=== PATIENT | male | born 1990 | race Caucasian/White ===

== ENCOUNTER 2018-08-23 08:08 | Emergency (ER) | payer OTHER ==
[~2018-08-23] VITALS: Ht 170.2 cm; Wt 72.6 kg
[2018-08-23] MEDS ORDERED: PRILOSEC OTC20 MG ORAL (08:14)
[2018-08-23 08:23] VITALS: BP 148/109
[2018-08-23] MEDS ORDERED: DiphenhydrAMINE 50mg/ml Inj IVP ONE (08:30)
[2018-08-23] MEDS ORDERED: Hydromorphone 0.5mg/0.5ml inj IVP ONE ×2 (08:30→09:30)
[2018-08-23] MEDS ORDERED: Metoclopramide 10mg/2ml Inj IVP ONE (08:30)
--- NOTE | 2018-08-23 08:33 | Emergency Room Report ---
History of Present Illness General Chief Complaint: Vomiting Source: Patient Present Illness HPI Patient presents with epigastric pain vomiting and diarrhea. He has a history of hiatal hernia. He had endoscopy in June. They did a biopsy but he was not treated for H. pylori. The patient denies vomiting blood or coffee grounds. He does have diarrhea that's loose. He denies any melena. The pain is severe in his epigastric area and also down low in his abdomen -rated 10/10, burning and cramping. He denies dysuria. He states that when he goes the hospital usually gets Dilaudid and Zofran. He takes omeprazole at home. He last smoked marijuana on his birthday which was 4 days ago. He denies alcohol or other drugs. No chest pain, shortness of breath, rashes. When the patient feels this pain she gets anxious. Allergies: Coded Allergies: ASPIRIN (Verified Allergy, Unknown, 08/23/18) MORPHINE (Verified Allergy, Unknown, 08/23/18) Patient History Past Medical History: see triage record Social History: Reports: alcohol use - Last year, drug use - THC; Denies: smoking Social History Narrative brought by cousin Reviewed Nursing Documentation: PMH: Agreed; PSxH: Agreed Nursing Documentation-PMH Past Medical History: No Stated History Review of Systems All Other Systems: negative except mentioned in HPI Physical Exam Vital Signs Date Time Temp Pulse Resp B/P (MAP) Pulse Ox O2 Delivery O2 Flow Rate FiO2 08/23/18 08:12 98.4 64 18 157/103 99 Room Air Sp02 EP Interpretation: reviewed, normal General Appearance: GCS 15, non-toxic, mild distress Head: normocephalic, atraumatic Eyes: bilateral eye normal inspection, bilateral eye PERRL, bilateral eye EOMI ENT: moist mucus membranes Neck: supple Respiratory: lungs clear, normal breath sounds Cardiovascular #1: regular rate, rhythm, no edema Cardiovascular #2: 2+ radial (L) Gastrointestinal: soft, no mass, no guarding, no rebound, tenderness - Epigastric Musculoskeletal: back normal, gait/station normal, normal range of motion Neurologic: oriented x3, grossly normal Psychiatric: anxious Skin: other - Tattoos Medical Decision Making Diagnostic Impression: Primary Impression: Nausea & vomiting Qualified Codes: R11.2 - Nausea with vomiting, unspecified Additional Impressions: Abdominal pain Qualified Codes: R10.13 - Epigastric pain THC use ER Course Patient presents with nausea vomiting diarrhea and epigastric pain. Differential includes gastritis, gastroenteritis, pancreatitis with vomiting amongst others. Patient be evaluated with x-rays and labs. He will receive IV hydration, Reglan, Benadryl and Dilaudid. We will also give him a dose of Pepcid. The patient is placed on a athletic monitor. Chest x-ray and abdomen films unremarkable. Labs with normal white count. Tox screen positive for THC. Mild renal insufficiency. Patient required several doses of analgesia. Finally he was able to sleep. He was tolerating oral intake. Vomiting had stopped. Discussed results with patient. Patient stable for outpatient observation and treatment. Laboratory Tests Test 08/23/18 08:36 08/23/18 09:50 White Blood Count 7.7 K/UL (4.8-10.8) Red Blood Count 5.72 M/UL (4.70-6.10) Hemoglobin 17.0 G/DL (14.2-18.0) Hematocrit 49.3 % (42.0-52.0) Mean Corpuscular Volume 86 FL (80-99) Mean Corpuscular Hemoglobin 29.7 PG (27.0-31.0) Mean Corpuscular Hemoglobin Concent 34.5 G/DL (32.0-36.0) Red Cell Distribution Width 11.7 % (11.6-14.8) Platelet Count 328 K/UL (150-450) Mean Platelet Volume 7.0 FL (6.5-10.1) Neutrophils (%) (Auto) 70.0 % (45.0-75.0) Lymphocytes (%) (Auto) 20.7 % (20.0-45.0) Monocytes (%) (Auto) 5.5 % (1.0-10.0) Eosinophils (%) (Auto) 2.6 % (0.0-3.0) Basophils (%) (Auto) 1.2 % (0.0-2.0) Prothrombin Time 10.2 SEC (9.30-11.50) Prothrombin Time INR 1.0 (0.9-1.1) PTT 25 SEC (23-33) Sodium Level 139 MMOL/L (136-145) Potassium Level 4.4 MMOL/L (3.5-5.1) Chloride Level 99 MMOL/L (98-107) Carbon Dioxide Level 28 MMOL/L (21-32) Anion Gap 12 mmol/L (5-15) Blood Urea Nitrogen 20 mg/dL (7-18) H Creatinine 1.4 MG/DL (0.55-1.30) H Estimate Glomerular Filtration Rate 59.9 mL/min (>60) Glucose Level 88 MG/DL (74-106) Calcium Level 10.0 MG/DL (8.5-10.1) Total Bilirubin 0.5 MG/DL (0.2-1.0) Aspartate Amino Transferase (AST) 27 U/L (15-37) Alanine Aminotransferase (ALT) 22 U/L (12-78) Alkaline Phosphatase 116 U/L (46-116) Total Creatine Kinase 208 U/L (26-308) Total Protein 9.5 G/DL (6.4-8.2) H Albumin 4.8 G/DL (3.4-5.0) Globulin 4.7 g/dL Albumin/Globulin Ratio 1.0 (1.0-2.7) Lipase 244 U/L (73-393) Serum Alcohol < 3 mg/dL Urine Color Pale yellow Urine Appearance Clear Urine pH 8 (4.5-8.0) Urine Specific Sheldon 1.010 (1.005-1.035) Urine Protein Negative (NEGATIVE) Urine Glucose (UA) Negative (NEGATIVE) Urine Ketones Negative (NEGATIVE) Urine Blood Negative (NEGATIVE) Urine Nitrite Negative (NEGATIVE) Urine Bilirubin Negative (NEGATIVE) Urine Urobilinogen Normal MG/DL (0.0-1.0) Urine Leukocyte Esterase Negative (NEGATIVE) Urine Opiates Screen Negative (NEGATIVE) Urine Barbiturates Screen Negative (NEGATIVE) Phencyclidine (PCP) Screen Negative (NEGATIVE) Urine Amphetamines Screen Negative (NEGATIVE) Urine Benzodiazepines Screen Negative (NEGATIVE) Urine Cocaine Screen Negative (NEGATIVE) Urine Marijuana (THC) Screen Positive (NEGATIVE) H Rhythm Strip Diag. Results EP Interpretation: yes Rhythm: NSR, no PVC's, no ectopy Chest X-Ray Diagnostic Results Chest X-Ray Diagnostic Results : Chest X-Ray Ordered: Yes # of Views/Limited/Complete: 1 View Indication: Other EP Interpretation: Yes Interpretation: no consolidation, no effusion, no pneumothorax Impression: No acute disease Electronically Signed by: Electronically signed by Westley Martin MD Other X-Ray Diagnostic Results Other X-Ray Diagnostic Results : # of Views/Limited Vs Complete: 1 View Indication: Pain Interpretation: nonspecific bowel gas, no sbo, other - No masses or free air Impression: No acute disease Electronically Signed by: Electronically signed by Westley Martin MD Last Vital Signs Date Time Temp Pulse Resp B/P (MAP) Pulse Ox O2 Delivery O2 Flow Rate FiO2 08/23/18 12:39 98.6 72 12 128/72 99 Room Air Status: improved Disposition: HOME, SELF-CARE Condition: Improved Scripts Acetaminophen (Tylenol) 325 Mg Tablet 650 MG ORAL Q6H PRN for Prn Pain/Headache/Temp > 101, #20 TAB 0 Refills Prov: Westley Martin MD 08/23/18 Ondansetron Odt* (ZOFRAN ODT*) 4 Mg Tab.rapdis 4 MG BC EVERY 8 HOURS, #10 TAB 0 Refills Prov: Westley Martin MD 08/23/18 Famotidine (PEPCID AC) 20 Mg Tablet 20 MG PO DAILY, #30 TAB Prov: Westley Martin MD 08/23/18 Westley Martin MD Aug 23, 2018 08:33
[2018-08-23 08:48] LABS: BASOPHILS % (AUTO) 1.2 % (0.0-2.0); EOSINOPHILS % (AUTO) 2.6 % (0.0-3.0); HEMATOCRIT 49.3 % (42.0-52.0); LYMPHOCYTES % (AUTO) 20.7 % (20.0-45.0); MEAN CORPUSCULAR VOLUME 86 FL (80-99); MONOCYTES % (AUTO) 5.5 % (1.0-10.0); PLATELET COUNT 328 K/UL (150-450); RED BLOOD COUNT 5.72 M/UL (4.70-6.10); RED CELL DISTRIBUTION WIDTH 11.7 % (11.6-14.8); WHITE BLOOD COUNT 7.7 K/UL (4.8-10.8)
[2018-08-23 09:02] LABS: ANION GAP 12 mmol/L (5-15); BLOOD UREA NITROGEN 20 mg/dL (7-18); CARBON DIOXIDE 28 MMOL/L (21-32); CHLORIDE 99 MMOL/L (98-107); CREATININE 1.4 MG/DL (0.55-1.30); POTASSIUM 4.4 MMOL/L (3.5-5.1); SODIUM 139 MMOL/L (136-145)
[2018-08-23 09:04] LABS: ALANINE AMINOTRANSFERASE 22 U/L (12-78); ALBUMIN 4.8 G/DL (3.4-5.0); ALKALINE PHOSPHATASE 116 U/L (46-116); ASPARTATE AMINO TRANSFERASE 27 U/L (15-37); BILIRUBIN,TOTAL 0.5 MG/DL (0.2-1.0); CREATINE KINASE 208 U/L (26-308)
[2018-08-23] MEDS ORDERED: fentaNYL 100 mcg/2 mL IV ONE (10:00)
[2018-08-23 10:22] LABS: APPEARANCE,URINE CLEAR; BILIRUBIN, URINE NEGATIVE (NEGATIVE); COLOR,URINE PALE YELLOW; GLUCOSE, URINE (UA) NEGATIVE (NEGATIVE); KETONES,URINE NEGATIVE (NEGATIVE); LEUKOCYTE ESTERASE ,URINE NEGATIVE (NEGATIVE); NITRITE,URINE NEGATIVE (NEGATIVE); PH,URINE 8 (4.5-8.0); PROTEIN,URINE NEGATIVE (NEGATIVE); UROBILINOGEN,URINE NORMAL MG/DL (0.0-1.0)
[2018-08-23 10:23] VITALS: BP 126/86
--- NOTE | 2018-08-23 11:03 | Diagnostic Imaging Report ---
Indication: Chest pain Technique: One view of the chest Comparison: none Findings: No acute infiltrates, effusions, or congestion. Tortuous calcified aorta. Normal heart size. Upper mediastinum unremarkable. Impression: No acute process.
--- NOTE | 2018-08-23 11:05 | Diagnostic Imaging Report ---
Indication: Abdominal pain Technique: Supine view of the abdomen Comparison: none Findings: Single prominent small bowel loop is seen in the left upper quadrant. The remainder the bowel gas is unremarkable. No masses or unusual calcifications. Impression: Single prominent left upper quadrant small bowel loop, nonspecific. No acute process otherwise
[2018-08-23 11:43] VITALS: BP 124/82
[2018-08-23] MEDS ORDERED: TYLENOL325 MG ORAL (12:12)
[2018-08-23] MEDS ORDERED: ONDANSETRON ODT4 MG BC (12:12)
[2018-08-23] MEDS ORDERED: PEPCID AC20 M2 PO (12:12)
[2018-08-23 12:39] VITALS: BP 128/72
== END 2018-08-23 12:40 | disposition home or self-care (01) ==
LOC: EMR 08:42
DX: R11.2 Nausea with vomiting, unspecified (principal); R10.13 Epigastric pain; F12.90 Cannabis use, unspecified, uncomplicated; Z88.6 Allergy status to analgesic agent
CPT/HCPCS: 36415; 71045; 74018; 80053; 80307; 80329; 81003; 82550; 83690; 85025; 85610; 85730; 96361; 96374; 96375; 96376; 99284; J1170; J1200; J2405; J2765; J3010; S0028; 96360

== ENCOUNTER 2018-08-30 07:22 | Emergency (ER) | payer OTHER ==
[~2018-08-30] VITALS: Ht 172.7 cm; Wt 77.1 kg
[~2018-08-30 07:22] MED LIST: ONDANSETRON ODT4 MG BC; PEPCID AC20 M2 PO; PRILOSEC OTC20 MG ORAL; TYLENOL325 MG ORAL
--- NOTE | 2018-08-30 07:35 | NUR ---
ED Nurse Note: Patient brought in by wheelchair from the triage, patient is from home c/o abdominal pain 10/10 with nausea and vomiting patient reports diarrhea started couple of hours. patient reports hx. pancreatitis
[2018-08-30] MEDS ORDERED: HYDROmorphone 1mg/ml Carpuject IVP ONE (07:45)
[2018-08-30] MEDS ORDERED: DiphenhydrAMINE 50mg/ml Inj IVP ONE (07:45)
[2018-08-30 07:56] VITALS: BP 118/83
[2018-08-30 07:58] LABS: BASOPHILS % (AUTO) 1.2 % (0.0-2.0); EOSINOPHILS % (AUTO) 1.8 % (0.0-3.0); HEMATOCRIT 44.6 % (42.0-52.0); HEMOGLOBIN 15.3 G/DL (14.2-18.0); LYMPHOCYTES % (AUTO) 23.1 % (20.0-45.0); MEAN CORPUSCULAR VOLUME 87 FL (80-99); MONOCYTES % (AUTO) 3.5 % (1.0-10.0); NEUTROPHILS % (AUTO) 70.4 % (45.0-75.0); PLATELET COUNT 338 K/UL (150-450); RED CELL DISTRIBUTION WIDTH 11.8 % (11.6-14.8); WHITE BLOOD COUNT 10.7 K/UL (4.8-10.8)
--- NOTE | 2018-08-30 08:21 | Emergency Room Report ---
History of Present Illness General Chief Complaint: Abdominal Pain Source: Patient Present Illness HPI 28-year-old male presents ED for evaluation. Patient complaining of abdominal pain with vomiting and diarrhea. Started this morning. Pain is sharp, 10 out of 10, nonradiating. States he has history of pancreatitis. Denies alcohol use , admits to marijuana use. Denies chest pain or shortness of breath. Denies fevers or chills. Denies recent travel or recent antibiotic use. No other aggravating relieving factors. Denies any other associated symptoms Allergies: Coded Allergies: ASPIRIN (Verified Allergy, Unknown, 08/23/18) MORPHINE (Verified Allergy, Unknown, 08/23/18) Patient History Past Medical History: other - pancreatitis Past Surgical History: none Pertinent Family History: none Social History: Denies: smoking, alcohol use, drug use Immunizations: UTD Reviewed Nursing Documentation: PMH: Agreed; PSxH: Agreed Nursing Documentation-PM Past Medical History: No History, Except For Hx Gastrointestinal Problems: Yes - Pancreatitis Review of Systems All Other Systems: negative except mentioned in HPI Physical Exam Vital Signs Date Time Temp Pulse Resp B/P (MAP) Pulse Ox O2 Delivery O2 Flow Rate FiO2 08/30/18 07:27 98.8 92 20 117/83 97 Room Air Sp02 EP Interpretation: reviewed, normal General Appearance: alert, GCS 15, non-toxic, mild distress Head: normocephalic, atraumatic Eyes: bilateral eye normal inspection, bilateral eye PERRL ENT: hearing grossly normal, normal pharynx, no angioedema, normal voice Neck: full range of motion, supple/symm/no masses Respiratory: chest non-tender, lungs clear, normal breath sounds, speaking full sentences Cardiovascular #1: regular rate, rhythm, no edema Cardiovascular #2: 2+ carotid (R), 2+ carotid (L), 2+ radial (R), 2+ radial (L) , 2+ dorsalis pedis (R), 2+ dorsalis pedis (L) Gastrointestinal: normal bowel sounds, soft, non-distended, no guarding, no rebound, tenderness Rectal: deferred Genitourinary: normal inspection, no CVA tenderness Musculoskeletal: back normal, gait/station normal, normal range of motion, non- tender Neurologic: alert, oriented x3, responsive, motor strength/tone normal, sensory intact, speech normal Psychiatric: judgement/insight normal, memory normal, mood/affect normal, no suicidal/homicidal ideation Reflexes: 3+ bicep (R), 3+ bicep (L), 3+ tricep (R), 3+ tricep (L), 3+ knee (R) , 3+ knee (L) Skin: normal color, no rash, warm/dry, well hydrated Lymphatic: no adenopathy Medical Decision Making Diagnostic Impression: Primary Impression: Abdominal pain Qualified Codes: R10.84 - Generalized abdominal pain Additional Impression: Gastroenteritis ER Course Hospital Course 28-year-old M presents to ED with abdominal pain with vomiting, diarrhea differential diagnosis: gastritis, SBO, cholecystits, gastroenteritis Clinical course Patient placed on stretcher. 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 After initial history and physical I ordered labs, IV fluids, Zofran, pepcid and pain meds Labs - no leukocytosis, electrolytes ok, LFTs normal, lipase ok Upon reassessment, patient states pain has improved. consideration gastroenteritis I reviewed EMR. This is second visit recently. For similar presentation. Safe for discharge close outpatient follow-up. We'll provide PMD referrals I feel this is a highly complex case requiring extensive working including EKG/ Rhythm strip, Xray/CT/US, Blood/urine lab work, repeat exams while in ED, and administration of strong opiates/narcotics for pain control, admission to hospital or close patient follow up. Diagnosis - gastroenteritis Stable and discharged to home with prescriptions for Zantac, zofran. Followup with PMD. Return to ED if symptoms recur or worsen Labs Test 08/30/18 07:48 White Blood Count 10.7 K/UL (4.8-10.8) Red Blood Count 5.10 M/UL (4.70-6.10) Hemoglobin 15.3 G/DL (14.2-18.0) Hematocrit 44.6 % (42.0-52.0) Mean Corpuscular Volume 87 FL (80-99) Mean Corpuscular Hemoglobin 30.0 PG (27.0-31.0) Mean Corpuscular Hemoglobin Concent 34.3 G/DL (32.0-36.0) Red Cell Distribution Width 11.8 % (11.6-14.8) Platelet Count 338 K/UL (150-450) Mean Platelet Volume 6.4 FL (6.5-10.1) Neutrophils (%) (Auto) 70.4 % (45.0-75.0) Lymphocytes (%) (Auto) 23.1 % (20.0-45.0) Monocytes (%) (Auto) 3.5 % (1.0-10.0) Eosinophils (%) (Auto) 1.8 % (0.0-3.0) Basophils (%) (Auto) 1.2 % (0.0-2.0) Sodium Level 137 MMOL/L (136-145) Potassium Level 4.2 MMOL/L (3.5-5.1) Chloride Level 102 MMOL/L (98-107) Carbon Dioxide Level 25 MMOL/L (21-32) Anion Gap 10 mmol/L (5-15) Blood Urea Nitrogen 17 mg/dL (7-18) Creatinine 1.2 MG/DL (0.55-1.30) Estimat Glomerular Filtration Rate > 60 mL/min (>60) Glucose Level 99 MG/DL (74-106) Calcium Level 9.7 MG/DL (8.5-10.1) Total Bilirubin 0.6 MG/DL (0.2-1.0) Aspartate Amino Transf (AST/SGOT) 18 U/L (15-37) Alanine Aminotransferase (ALT/SGPT) 17 U/L (12-78) Alkaline Phosphatase 93 U/L (46-116) Total Protein 8.3 G/DL (6.4-8.2) Albumin 4.4 G/DL (3.4-5.0) Globulin 3.9 g/dL Albumin/Globulin Ratio 1.1 (1.0-2.7) Lipase 162 U/L (73-393) Last Vital Signs Date Time Temp Pulse Resp B/P (MAP) Pulse Ox O2 Delivery O2 Flow Rate FiO2 08/30/18 07:56 98.8 90 13 118/83 98 Room Air Status: improved Disposition: HOME, SELF-CARE Condition: Stable Scripts Ondansetron Odt* (ZOFRAN ODT*) 4 Mg Tab.rapdis 4 MG BC EVERY 6 HOURS PRN for Nausea & Vomiting, #10 TAB 0 Refills Prov: Palomo Aguilera MD 08/30/18 Ranitidine Hcl* (ZANTAC*) 150 Mg Tablet 150 MG ORAL TWICE A DAY, #30 TAB Prov: Palomo Aguilera MD 08/30/18 Referrals: NOT CHOSEN IPA/,REFERRING (PCP) Palomo Aguilera MD Aug 30, 2018 08:21
[2018-08-30 08:33] LABS: ANION GAP 10 mmol/L (5-15); BLOOD UREA NITROGEN 17 mg/dL (7-18); CALCIUM 9.7 MG/DL (8.5-10.1); CARBON DIOXIDE 25 MMOL/L (21-32); CHLORIDE 102 MMOL/L (98-107); CREATININE 1.2 MG/DL (0.55-1.30); POTASSIUM 4.2 MMOL/L (3.5-5.1); SODIUM 137 MMOL/L (136-145)
[2018-08-30 08:37] LABS: ALANINE AMINOTRANSFERASE 17 U/L (12-78); ALBUMIN 4.4 G/DL (3.4-5.0); ALBUMIN/GLOBULIN RATIO 1.1 (1.0-2.7); ALKALINE PHOSPHATASE 93 U/L (46-116); ASPARTATE AMINO TRANSFERASE 18 U/L (15-37); BILIRUBIN,TOTAL 0.6 MG/DL (0.2-1.0)
[2018-08-30] MEDS ORDERED: ONDANSETRON ODT4 MG BC (09:12)
[2018-08-30] MEDS ORDERED: RANITIDINE HCL150 MG ORAL (09:12)
[2018-08-30 09:16] VITALS: BP 109/82
--- NOTE | 2018-08-30 09:26 | NUR ---
ED Nurse Note: Patient cleared for discharge per ERMD. AO4. NAD. VSS. Patient given prescriptions and discharge instructions; verbalized understanding. ID removed. IV removed without complication. Patient stated he is getting a ride to go back home. patient verbalized undertanding of not driving, patient verbalized understanding and stated he needs to get a ride. Patient ambulated steady out of ED with all belongings.
== END 2018-08-30 09:28 | disposition home or self-care (01) ==
LOC: EMR 07:38
DX: K52.9 Noninfective gastroenteritis and colitis, unspecified (principal); Z88.6 Allergy status to analgesic agent; Z88.5 Allergy status to narcotic agent
CPT/HCPCS: 36415; 80053; 83690; 85025; 96361; 96374; 96375; 99284; J1170; J1200; J2405; S0028

== ENCOUNTER 2018-09-16 03:02 | Emergency (ER) | payer OTHER ==
[~2018-09-16] VITALS: Ht 177.8 cm; Wt 77.1 kg
[~2018-09-16 03:02] MED LIST changes: +RANITIDINE HCL150 MG ORAL
--- NOTE | 2018-09-16 03:10 | NUR ---
ED Nurse Note: pt walked in due to abdominal pain started 20 mins ago, vomited twice. Pt is AO x 4times,VSS, on room air no distress. ERMD seen Pt at bedside.
--- NOTE | 2018-09-16 03:15 | NUR ---
ED Nurse Note: Blood ans urine sample sent to lab.
[2018-09-16] MEDS ORDERED: Promethazine HCl 25 MG in NS 55 ML IVPB ONE (03:30)
[2018-09-16] MEDS ORDERED: Haloperidol Lactate 5 MG in D5W 55 ML IVPB ONE (03:30)
[2018-09-16 03:33] LABS: EOSINOPHILS % (AUTO) 3.7 % (0.0-3.0); HEMATOCRIT 42.9 % (42.0-52.0); HEMOGLOBIN 15.1 G/DL (14.2-18.0); LYMPHOCYTES % (AUTO) 42.7 % (20.0-45.0); MEAN CORPUSCULAR VOLUME 86 FL (80-99); MONOCYTES % (AUTO) 6.3 % (1.0-10.0); NEUTROPHILS % (AUTO) 46.3 % (45.0-75.0); PLATELET COUNT 294 K/UL (150-450); RED BLOOD COUNT 4.96 M/UL (4.70-6.10); WHITE BLOOD COUNT 8.3 K/UL (4.8-10.8)
[2018-09-16 03:43] LABS: APPEARANCE,URINE CLOUDY; BILIRUBIN, URINE NEGATIVE (NEGATIVE); COLOR,URINE PALE YELLOW; GLUCOSE, URINE (UA) NEGATIVE (NEGATIVE); KETONES,URINE NEGATIVE (NEGATIVE); LEUKOCYTE ESTERASE ,URINE 1+ (NEGATIVE); NITRITE,URINE NEGATIVE (NEGATIVE); PH,URINE 8 (4.5-8.0); PROTEIN,URINE NEGATIVE (NEGATIVE); UROBILINOGEN,URINE NORMAL MG/DL (0.0-1.0)
[2018-09-16 03:48] LABS: ANION GAP 12 mmol/L (5-15); BLOOD UREA NITROGEN 21 mg/dL (7-18); CALCIUM 9.8 MG/DL (8.5-10.1); CARBON DIOXIDE 25 MMOL/L (21-32); CHLORIDE 104 MMOL/L (98-107); CREATININE 1.2 MG/DL (0.55-1.30); POTASSIUM 3.7 MMOL/L (3.5-5.1); SODIUM 141 MMOL/L (136-145)
[2018-09-16 03:53] LABS: ALANINE AMINOTRANSFERASE 23 U/L (12-78); ALBUMIN 4.3 G/DL (3.4-5.0); ALBUMIN/GLOBULIN RATIO 1.2 (1.0-2.7); ALKALINE PHOSPHATASE 82 U/L (46-116); ASPARTATE AMINO TRANSFERASE 16 U/L (15-37); BILIRUBIN,TOTAL 0.3 MG/DL (0.2-1.0)
[2018-09-16] MEDS ORDERED: Ketorolac 30mg Inj IV ONE (04:00)
--- NOTE | 2018-09-16 04:20 | Emergency Room Report ---
History of Present Illness General Chief Complaint: Abdominal Pain Source: Patient, Medical Record Present Illness HPI Is a 28-year-old male with a history of abdominal pain with nausea vomiting and diarrhea. He said he gets this about every month but lately every 2 weeks. Last time was when he was here. Complaining of abdominal pain with nausea and vomiting. He claimed he also had diarrhea. 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 Vomiting is nonbloody nonbilious. Diarrhea is watery. Pain is 10 out of 10. Similar symptom in the past. Denies any other complaint. Allergies: Coded Allergies: ASPIRIN (Verified Allergy, Unknown, 08/23/18) MORPHINE (Verified Allergy, Unknown, 08/23/18) Patient History Past Medical History: see triage record, old chart reviewed Past Surgical History: other Pertinent Family History: none Social History: Denies: smoking Immunizations: other Reviewed Nursing Documentation: PMH: Agreed; PSxH: Agreed Nursing Documentation-PMH Past Medical History: No Stated History Hx Gastrointestinal Problems: Yes - Pancreatitis, hernia repair Review of Systems Eye: Denies: eye pain, blurred vision ENT: Denies: ear pain, nose congestion, throat swelling Respiratory: Denies: cough, shortness of breath Cardiovascular: Denies: chest pain, palpitations Gastrointestinal: Reports: abdominal pain, diarrhea, nausea, vomiting Musculoskeletal: Denies: back pain, joint pain Skin: Denies: rash Neurological: Denies: headache, numbness Endocrine: Denies: increased thirst, increased urine Hematologic/Lymphatic: Denies: easy bruising All Other Systems: negative except mentioned in HPI Physical Exam Vital Signs Date Time Temp Pulse Resp B/P (MAP) Pulse Ox O2 Delivery O2 Flow Rate FiO2 09/16/18 03:04 98.4 82 16 161/87 99 Room Air vitals with high blood pressure Sp02 EP Interpretation: reviewed, normal General Appearance: well appearing, no apparent distress, alert Head: normocephalic, atraumatic Eyes: bilateral eye PERRL, bilateral eye EOMI ENT: hearing grossly normal, normal pharynx Neck: full range of motion, supple, no meningismus Respiratory: chest non-tender, lungs clear, normal breath sounds Cardiovascular #1: regular rate, rhythm, no murmur Gastrointestinal: normal bowel sounds, no mass, no organomegaly, no bruit, non- distended, tenderness - Diffuse but soft Musculoskeletal: back normal, gait/station normal, normal range of motion, other - Multiple ecchymosis on his arms from IV sticks Neurologic: alert, oriented x3 Psychiatric: mood/affect normal Skin: warm/dry Medical Decision Making Diagnostic Impression: Primary Impression: Abdominal pain Qualified Codes: R10.84 - Generalized abdominal pain Additional Impressions: Cyclic vomiting syndrome Qualified Codes: G43.A0 - Cyclical vomiting, not intractable Drug-seeking behavior ER Course Patient with recurrent abdominal pain with nausea and vomiting. Patient is forcibly gagging and trying to throw up. Patient addresses in [place]. He said he hasn't been anywhere for over 2 weeks. I call [facility] and he was there on September 08. He was also at [facility] in August. Labs unremarkable. No evidence of dehydration. I suspect a strong narcotic seeking behavior in this patient. He goes to multiple different hospitals for his pain. I am uncomfortable prescribing narcotics for this patient. his history is incongruent with my exam and investigation. We'll discharge home. Lab Results Impression labs unremarkable Last Vital Signs Date Time Temp Pulse Resp B/P (MAP) Pulse Ox O2 Delivery O2 Flow Rate FiO2 09/16/18 03:04 98.4 82 16 161/87 99 Room Air Status: improved Disposition: HOME, SELF-CARE Condition: Stable Scripts Promethazine Hcl* (PHENERGAN*) 25 Mg Tablet 25 MG ORAL Q6H, #15 TAB 0 Refills Prov: Rj Anton MD 09/16/18 Referrals: NON PHYSICIAN (PCP) Patient Instructions: Abdominal Pain, Adult Additional Instructions: Follow-up with your doctor in 2-3 days. You may need a referral to see a GI doctor. Return if symptom worsen. Rj Anton MD Sep 16, 2018 04:20
[2018-09-16 04:48] VITALS: BP 134/81
[2018-09-16] MEDS ORDERED: PHENERGAN25 M1 ORAL (05:25)
[2018-09-16 05:40] VITALS: BP 134/81
--- NOTE | 2018-09-16 05:42 | NUR ---
ER DISCHARGE NOTE: Patient is cleared to be discharged per ERMD, pt is aox4, on room air, with stable vital signs. pt was given dc and prescription instructions, pt was able to verbalize understanding, pt id band and iv site removed without complications. pt is able to ambulate with steady gait. pt took all belongings.
== END 2018-09-16 05:42 | disposition home or self-care (01) ==
LOC: EMR 03:21
DX: R10.9 Unspecified abdominal pain (principal); G43.A0 Cyclical vomiting, in migraine, not intractable; Z76.5 Malingerer [conscious simulation]; Z88.6 Allergy status to analgesic agent; Z88.5 Allergy status to narcotic agent
CPT/HCPCS: 36415; 80053; 81003; 83690; 85025; 96361; 96365; 96375; 99284; J1630; J1885; J2405; J2550

== ENCOUNTER 2019-03-27 15:06 | Emergency (ER) | payer OTHER ==
[~2019-03-27] VITALS: Ht 177.8 cm; Wt 68.0 kg
[~2019-03-27 15:06] MED LIST changes: +PHENERGAN25 M1 ORAL
[2019-03-27 15:26] VITALS: BP 181/101
--- NOTE | 2019-03-27 15:29 | NUR ---
ED Nurse Note: pt walked in to ER from work due to severe abdominal pain 10/10 and N/V for 1 hours. pt vomiting bile and restless but follows commands. skin clean and intact. no cardiac or pulmonary distress noted at this time. 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 per pt, he has h/o pancretitis and chron disease.
[2019-03-27] MEDS ORDERED: Ketorolac 30mg Inj IV ONE (15:45)
[2019-03-27] MEDS ORDERED: Omnipaque-300 100ml vial INJ PRN (15:45)
--- NOTE | 2019-03-27 15:50 | NUR ---
ED Nurse Note: pt reported pain not improving. ERMD made aware.
[2019-03-27 15:53] LABS: BASOPHILS % (AUTO) 1.3 % (0.0-2.0); HEMATOCRIT 43.2 % (42.0-52.0); LYMPHOCYTES % (AUTO) 35.7 % (20.0-45.0); MEAN CORPUSCULAR VOLUME 90 FL (80-99); MONOCYTES % (AUTO) 7.9 % (1.0-10.0); NEUTROPHILS % (AUTO) 53.1 % (45.0-75.0); PLATELET COUNT 298 K/UL (150-450); RED BLOOD COUNT 4.81 M/UL (4.70-6.10); RED CELL DISTRIBUTION WIDTH 10.2 % (11.6-14.8); WHITE BLOOD COUNT 8.6 K/UL (4.8-10.8)
--- NOTE | 2019-03-27 15:53 | Emergency Room Report ---
History of Present Illness General Chief Complaint: Abdominal Pain Source: Patient Present Illness HPI Disclaimer: Please note that this report is being documented using [employer] technology. This can lead to erroneous entry secondary to incorrect interpretation by the dictating instrument. HPI: 38-year-old male with history of pancreatitis Crohn's disease presents for evaluation of sudden onset abdominal pain. He has been constipated for several days and had a forceful bowel movement approximately 1 hour ago. Noting 10/10 bilateral lower quadrant abdominal pain. Notes several episodes of bilious emesis. Denies hematemesis. Denies recent diarrhea or any other changes in his health. Does not know what medications he is supposed to be taking for Crohn's. He believes he is on some steroids. PMH: Crohn's, pancreatitis PSH: Hiatal hernia repair Allergies: Aspirin, morphine Social Hx: Denies drug or alcohol use Allergies: Coded Allergies: ASPIRIN (Verified Allergy, Unknown, 08/23/18) MORPHINE (Verified Allergy, Unknown, 08/23/18) Nursing Documentation-PMH Past Medical History: No History, Except For Hx Gastrointestinal Problems: Yes - Pancreatitis, hernia repair, krohns Review of Systems All Other Systems: negative except mentioned in HPI Physical Exam Vital Signs Date Time Temp Pulse Resp B/P (MAP) Pulse Ox O2 Delivery O2 Flow Rate FiO2 03/27/19 15:20 98.8 81 20 181/101 (127) 98 Room Air General: Awake and alert, writhing in pain in the bed HEENT: NC/AT. EOMI. Cardiovascular: RRR. S1 and S2 normal. No murmur appreciated Resp: Normal work of breathing. No cough, wheezing or crackles appreciated Abdomen: Abdomen is soft, nondistended. Tender palpation lower quadrants bilaterally. No masses. No rebound. Skin: Intact. No abrasions, laceration or rash over the exposed skin MSK: Normal tone and bulk. Moving all extremities. No obvious deformity. Neuro: Awake and alert. Mentating appropriately. Medical Decision Making Diagnostic Impression: Primary Impression: Abdominal pain ER Course This is an otherwise healthy 28-year-old male presenting for evaluation of abdominal pain with sudden onset prior to arrival. He is retching in the emergency department. We will start IV fluids, antiemetics, broad metabolic and infectious work-up and send the patient for CT scan of the abdomen. Concern for pancreatitis, appendicitis, cholecystitis, bowel obstruction, urinary tract infection among others. Will give IV pain medication and reassess frequently. Laboratory Tests Test 03/27/19 15:45 03/27/19 15:52 03/27/19 18:00 White Blood Count 8.6 K/UL (4.8-10.8) Red Blood Count 4.81 M/UL (4.70-6.10) Hemoglobin 15.0 G/DL (14.2-18.0) Hematocrit 43.2 % (42.0-52.0) Mean Corpuscular Volume 90 FL (80-99) Mean Corpuscular Hemoglobin 31.3 PG (27.0-31.0) H Mean Corpuscular Hemoglobin Concent 34.8 G/DL (32.0-36.0) Red Cell Distribution Width 10.2 % (11.6-14.8) L Platelet Count 298 K/UL (150-450) Mean Platelet Volume 7.0 FL (6.5-10.1) Neutrophils (%) (Auto) 53.1 % (45.0-75.0) Lymphocytes (%) (Auto) 35.7 % (20.0-45.0) Monocytes (%) (Auto) 7.9 % (1.0-10.0) Eosinophils (%) (Auto) 2.0 % (0.0-3.0) Basophils (%) (Auto) 1.3 % (0.0-2.0) Sodium Level 139 MMOL/L (136-145) Potassium Level 3.6 MMOL/L (3.5-5.1) Chloride Level 103 MMOL/L (98-107) Carbon Dioxide Level 25 MMOL/L (21-32) Anion Gap 11 mmol/L (5-15) Blood Urea Nitrogen 13 mg/dL (7-18) Creatinine 1.0 MG/DL (0.55-1.30) Estimate Glomerular Filtration Rate > 60 mL/min (>60) Glucose Level 89 MG/DL (74-106) Calcium Level 9.2 MG/DL (8.5-10.1) Total Bilirubin 0.6 MG/DL (0.2-1.0) Aspartate Amino Transferase (AST) 14 U/L (15-37) L Alanine Aminotransferase (ALT) 12 U/L (12-78) Alkaline Phosphatase 74 U/L (46-116) C-Reactive Protein, Quantitative < 0.4 mg/dL (0.00-0.90) Total Protein 8.2 G/DL (6.4-8.2) Albumin 4.5 G/DL (3.4-5.0) Globulin 3.7 g/dL Albumin/Globulin Ratio 1.2 (1.0-2.7) Lipase 204 U/L (73-393) Urine Color Pale yellow Urine Appearance Clear Urine pH 7 (4.5-8.0) Urine Specific [place] 1.010 (1.005-1.035) Urine Protein Negative (NEGATIVE) Urine Glucose (UA) Negative (NEGATIVE) Urine Ketones Negative (NEGATIVE) Urine Blood 2+ (NEGATIVE) H Urine Nitrite Negative (NEGATIVE) Urine Bilirubin Negative (NEGATIVE) Urine Urobilinogen Normal MG/DL (0.0-1.0) Urine Leukocyte Esterase Negative (NEGATIVE) Urine RBC 5-10 /HPF (0 - 0) H Urine WBC 0 /HPF (0 - 0) Urine Squamous Epithelial Cells None /LPF (NONE/OCC) Urine Bacteria Few /HPF (NONE) Erythrocyte Sedimentation Rate 8 MM/HR (0-15) CT/MRI/US Diagnostic Results CT/MRI/US Diagnostic Results : Impression Preliminary Findings Only See Final Report For Complete Findings CT ABDOMEN & PELVIS With Contrast: No appendicitis, SBO, or diverticulitis. Mildly thickened bowel which may be underdistention versus enteritis/colitis. No hydronephrosis or ureteral calculus. Unremarkable gallbladder and pancreas. Radiologist: Willi Pettit M.D. Study ready at 17:15 and initial results transmitted at 17:39 Last Vital Signs Date Time Temp Pulse Resp B/P (MAP) Pulse Ox O2 Delivery O2 Flow Rate FiO2 03/27/19 15:26 98.8 85 20 181/101 98 Room Air Status: improved Reevaluation Impression CT scan of the abdomen did not show evidence of acute pancreatitis, cholecystitis, appendicitis or other major pathology. Labs have returned largely within normal limits. The patient is received IV fluids, pain medication and antiemetics with now good control of his symptoms. It appears he is suffering from a gastroenteritis which is likely viral in nature. Should resolve in the next 2 days and the patient [facility] Discussed reasons to return to the emergency department. He understands and agrees with this treatment plan was discharged home. Disposition: HOME, SELF-CARE Condition: Improved Scripts Ondansetron Odt* (ZOFRAN ODT*) 4 Mg Tab.rapdis 4 MG BC EVERY 6 HOURS PRN for Nausea & Vomiting, #20 TAB 0 Refills Prov: Timothy Dow MD 03/27/19 Timothy Dow MD Mar 27, 2019 15:53
[2019-03-27 16:05] LABS: ANION GAP 11 mmol/L (5-15); BLOOD UREA NITROGEN 13 mg/dL (7-18); CALCIUM 9.2 MG/DL (8.5-10.1); CARBON DIOXIDE 25 MMOL/L (21-32); CHLORIDE 103 MMOL/L (98-107); POTASSIUM 3.6 MMOL/L (3.5-5.1); SODIUM 139 MMOL/L (136-145)
[2019-03-27] MEDS ORDERED: Metoclopramide 10mg/2ml Inj ONE (16:07)
[2019-03-27 16:09] LABS: ALANINE AMINOTRANSFERASE 12 U/L (12-78); ALBUMIN 4.5 G/DL (3.4-5.0); ALBUMIN/GLOBULIN RATIO 1.2 (1.0-2.7); ALKALINE PHOSPHATASE 74 U/L (46-116); ASPARTATE AMINO TRANSFERASE 14 U/L (15-37); BILIRUBIN,TOTAL 0.6 MG/DL (0.2-1.0)
[2019-03-27] MEDS ORDERED: Metoclopramide 10mg/2ml Inj IVP ONE ×2 (16:15→17:15)
[2019-03-27] MEDS ORDERED: DiphenhydrAMINE 50mg/ml Inj IVP ONE (16:15)
[2019-03-27 16:20] LABS: APPEARANCE,URINE CLEAR; BILIRUBIN, URINE NEGATIVE (NEGATIVE); COLOR,URINE PALE YELLOW; GLUCOSE, URINE (UA) NEGATIVE (NEGATIVE); KETONES,URINE NEGATIVE (NEGATIVE); LEUKOCYTE ESTERASE ,URINE NEGATIVE (NEGATIVE); NITRITE,URINE NEGATIVE (NEGATIVE); PH,URINE 7 (4.5-8.0); PROTEIN,URINE NEGATIVE (NEGATIVE); UROBILINOGEN,URINE NORMAL MG/DL (0.0-1.0)
[2019-03-27] MEDS ORDERED: HYDROmorphone 1mg/ml Carpuject IVP ONE ×2 (16:30→18:45)
--- NOTE | 2019-03-27 16:40 | NUR ---
ED Nurse Note: pt went to CT scan in stable condition.
--- NOTE | 2019-03-27 16:52 | NUR ---
ED Nurse Note: pt came back from CT scan in stable condition.
[2019-03-27] MEDS ORDERED: LORazepam Inj 2mg/ml 1ml IV ONE (17:15)
--- NOTE | 2019-03-27 17:40 | Diagnostic Imaging Report ---
Clinical Indication: Abdominal pain 10 out of 10, nausea vomiting for one hour Technique: No oral contrast utilized, per emergency room physician request IV administration nonionic contrast. Venous phase spiral acquisition obtained through the abdomen and pelvis. Multiplanar reconstructions were generated. Total dose length product 1780 mGycm. CTDIvol(s) 30 mGy. Dose reduction achieved using automated exposure control Comparison: none Findings: The appendix contains an appendicolith at the origin, but otherwise appears unremarkable. No evidence of diverticulosis or diverticulitis. No small bowel distention. No free or loculated intraperitoneal gas or fluid. The distal esophagus, stomach, and duodenum are unremarkable. The liver, gallbladder, bile ducts, pancreas, spleen, adrenals, kidneys are all unremarkable. No retroperitoneal or mesenteric mass or adenopathy. No pelvic mass or adenopathy. The included lung bases are clear. The bones are unremarkable. Impression: Negative This essentially agrees with the preliminary interpretation provided overnight by [facility]erad[facility] service. The CT scanner at [facility] is accredited by the [employer] and the scans are performed using protocols designed to limit radiation exposure to as low as reasonably achievable to attain images of sufficient resolution adequate for diagnostic evaluation.
[2019-03-27] MEDS ORDERED: Capsaicin 0.075% Cream TOPIC SCH (18:00)
[2019-03-27] MEDS ORDERED: ONDANSETRON ODT4 MG BC (18:46)
[2019-03-27 19:11] VITALS: BP 145/71
--- NOTE | 2019-03-27 19:12 | NUR ---
ED Nurse Note: Pt cleared by health care Provider for discharge. DC instructions/prescription was given and explained to pt and verbalized understanding of teachings. All medical deviecs such as ID band removed. Pt is AAO x4, ambulatory and left with all personal belongings.
== END 2019-03-27 19:12 | disposition home or self-care (01) ==
LOC: EMR 15:49
DX: R10.9 Unspecified abdominal pain (principal); Z88.6 Allergy status to analgesic agent; K50.90 Crohn's disease, unspecified, without complications
CPT/HCPCS: 36415; 74177; 80053; 81003; 83690; 85025; 85651; 86140; 96361; 96374; 96375; 96376; J1170; J1200; J1885; J2405; J2765; Q9967; S0028; Z7502; 99284

== ENCOUNTER 2019-03-31 02:53 | Emergency (ER) | payer OTHER ==
[~2019-03-31] VITALS: Ht 177.8 cm; Wt 68.0 kg
[2019-03-31 03:10] VITALS: BP 165/96
--- NOTE | 2019-03-31 03:10 | Emergency Room Report ---
History of Present Illness General Chief Complaint: Abdominal Pain Source: Patient Present Illness HPI Patient presents in somewhat histrionic fashion with complaints of diffuse abdominal pain Diarrhea Denies any chest pain He complains of increased nausea and dry heaving as well Patient reports that he was here recently with similar complaints He reports that his GI doctor wants to do a colonoscopy Upon arrival patient requesting Dilaudid After discussing that this is not the appropriate initial medication he reports that he has received, fentanyl which also works Denies any fevers denies any rash Allergies: Coded Allergies: ASPIRIN (Verified Allergy, Unknown, 08/23/18) MORPHINE (Verified Allergy, Unknown, 08/23/18) Patient History Past Medical History: see triage record Reviewed Nursing Documentation: PMH: Agreed; PSxH: Agreed Nursing Documentation-PMH Hx Gastrointestinal Problems: Yes - Pancreatitis, hernia repair, krohns Review of Systems All Other Systems: negative except mentioned in HPI Physical Exam Vital Signs Date Time Temp Pulse Resp B/P (MAP) Pulse Ox O2 Delivery O2 Flow Rate FiO2 03/31/19 02:54 98.4 116 20 165/96 (119) 96 Room Air Sp02 EP Interpretation: reviewed, normal General Appearance: mild distress - Agitated Head: normocephalic, atraumatic Eyes: bilateral eye PERRL, bilateral eye EOMI ENT: hearing grossly normal, normal pharynx, TMs + canals normal, uvula midline Neck: full range of motion, supple, no meningismus, no bony tend Respiratory: lungs clear, normal breath sounds, no rhonchi, no respiratory distress, no retraction, no accessory muscle use Cardiovascular #1: normal peripheral pulses, regular rate, rhythm, no edema, no gallop, no JVD, no murmur Gastrointestinal: normal bowel sounds, non tender, soft, no mass, no organomegaly, non-distended, no guarding, no hernia, no pulsatile mass, no rebound Genitourinary: no CVA tenderness Musculoskeletal: normal inspection Neurologic: oriented x3, responsive, billing associate III-XII nml as tested, motor strength/ tone normal, sensory intact Psychiatric: mood/affect normal Skin: no rash Lymphatic: normal inspection, no adenopathy Medical Decision Making Diagnostic Impression: Primary Impression: Abdominal pain Additional Impression: Nausea & vomiting ER Course With the history exam and presentation, multiple differentials considered, including but not limited to appendicitis, gastritis, cholecystitis, diverticulitis Patient has had recent imaging and blood work this was not repeated Patient has a soft abdomen and appears to be fairly histrionic in nature Patient raises the question of possible cyclical vomiting syndrome from marijuana abuse After initial medication patient has improved significantly and slept for several hours and was dispositioned in improved condition for close outpatient follow-up Last Vital Signs Date Time Temp Pulse Resp B/P (MAP) Pulse Ox O2 Delivery O2 Flow Rate FiO2 03/31/19 02:54 98.4 116 20 165/96 (119) 96 Room Air Status: improved Disposition: HOME, SELF-CARE Condition: Improved Additional Instructions: Patient is provided with the discharge instructions notified to follow up with primary doctor in the next 2-3 days otherwise return to the er with any worsening symptoms. Please note that this report is being documented using [employer] technology. This can lead to erroneous entry secondary to incorrect interpretation by the dictating instrument. Louis Dillard DO Mar 31, 2019 03:10
[2019-03-31] MEDS ORDERED: Metoclopramide 10mg/2ml Inj IVP ONE (03:15)
[2019-03-31] MEDS ORDERED: Haloperidol 5mg/ml Inj IM ONE (03:15)
[2019-03-31] MEDS ORDERED: LORazepam Inj 2mg/ml 1ml IV ONE (03:15)
[2019-03-31] MEDS ORDERED: DiphenhydrAMINE 50mg/ml Inj IVP ONE (03:15)
--- NOTE | 2019-03-31 03:34 | NUR ---
ED Nurse Note: Patient walked in to ER c/o RT lower abd pain with n/v since 0200. Pt stated he was at [facility] 2 days ago for smae reason. Pain is worse today; 10 pain. hx of pancreitis.AAO x4, VSS at this time.
[2019-03-31 05:04] VITALS: BP 165/96
== END 2019-03-31 05:05 | disposition home or self-care (01) ==
LOC: EMR 03:25
DX: R10.9 Unspecified abdominal pain (principal); R11.2 Nausea with vomiting, unspecified; Z88.6 Allergy status to analgesic agent
CPT/HCPCS: 96361; 96372; 96374; 96375; J1200; J2765; Z7502; 99284

== ENCOUNTER 2019-04-09 09:53 | Emergency (ER) | payer OTHER ==
[~2019-04-09] VITALS: Ht 172.7 cm; Wt 68.0 kg
--- NOTE | 2019-04-09 10:02 | NUR ---
ED Nurse Note: unable to reading bp on portable vital sign machine due to pt's movement.
--- NOTE | 2019-04-09 10:06 | NUR ---
ED Nurse Note: pt presents to ED c/o abd pain and N/V since last PM. pt states that his pain is in his RLQ that he describes a "sharp burning." pt reports vomiting clear yellow fluid x4 today. pt has a history of pancreatitis and Crohn's disease. He thinks this could be a possible flare up. Pt is constantly moving and writing in pain, it took many attempts to be able to get an IV into him. He refuses to take haldol because it puts him in a "catatonic state," pt asks for ativan via IV and that dilaudid is the only pain medication that usually provides him with relief. pt is able to ambulate to the restroom and ambulated out of bed to the nurses station to ask for something for the pain.
[2019-04-09] MEDS ORDERED: LORazepam 1mg tab ORAL ONE (10:15)
[2019-04-09] MEDS ORDERED: Dicyclomine HCl 10mg/5ml oral soln ORAL ONE (10:15)
[2019-04-09] MEDS ORDERED: Haloperidol 5mg/ml Inj IM ONE (10:15)
[2019-04-09] MEDS ORDERED: Mylanta II UD 30ml ORAL ONE (10:15)
--- NOTE | 2019-04-09 10:42 | Emergency Room Report ---
History of Present Illness General Chief Complaint: Abdominal Pain Source: Patient, Medical Record Present Illness HPI 28-year-old male with a history of gastritis, depression, anxiety, remote hiatal hernia repair, marijuana abuse, presents to the ER with severe stent, nonradiating epigastric abdominal pain that started this morning, with multiple bouts of associated nausea and vomiting nonbloody nonbilious material, non- coffee grounds, reports that he usually gets Dilaudid for his pain, reports he cannot take morphine due to allergy, and reports that Haldol puts him in a catatonic state. Reports normal bowel movements, no urinary symptoms, and reports no other drug use or alcohol use other than marijuana. Reports he had this symptom multiple times in the past. He did not try any medication for prior to arrival. The request medications for anxiety, but denies suicidal thoughts, just reports that he has severe anxiety and needs Ativan plus Dilaudid for anxiety and pain control. Allergies: Coded Allergies: ASPIRIN (Verified Allergy, Unknown, 08/23/18) MORPHINE (Verified Allergy, Unknown, 08/23/18) Patient History Past Medical History: see triage record Social History: Reports: drug use Reviewed Nursing Documentation: PMH: Agreed; PSxH: Agreed Nursing Documentation-PMH Past Medical History: No History, Except For Hx Gastrointestinal Problems: Yes - Pancreatitis, hernia repair, krohns Review of Systems All Other Systems: negative except mentioned in HPI Physical Exam Vital Signs Date Time Temp Pulse Resp B/P (MAP) Pulse Ox O2 Delivery O2 Flow Rate FiO2 04/09/19 09:56 100.4 105 18 98 Room Air Sp02 EP Interpretation: reviewed, normal General Appearance: no apparent distress, alert, non-toxic Head: normocephalic Eyes: bilateral eye normal inspection, bilateral eye PERRL, bilateral eye EOMI ENT: normal ENT inspection, hearing grossly normal, normal pharynx, no angioedema, normal voice, moist mucus membranes Neck: normal inspection, full range of motion, supple, supple/symm/no masses Respiratory: chest non-tender, lungs clear, normal breath sounds, chest symmetrical, palpation of chest normal Cardiovascular #1: normal peripheral pulses, regular rate, rhythm Cardiovascular #2: 2+ radial (R), 2+ radial (L) Gastrointestinal: normal inspection, non tender, soft, no mass, no guarding, no rebound Rectal: deferred Genitourinary: normal inspection, no CVA tenderness Musculoskeletal: back normal, gait/station normal, normal range of motion, non- tender, no calf tenderness Neurologic: alert, responsive, global marketing coordinator III-XII nml as tested, motor strength/tone normal, sensory intact, speech normal Psychiatric: judgement/insight normal, memory normal, mood/affect normal, anxious Lymphatic: no adenopathy Medical Decision Making Diagnostic Impression: Primary Impression: Abdominal pain ER Course Patient is agitated, he had a low-grade temperature, but I do not suspect this to be infectious, he is writhing around requesting Dilaudid., Nondistended, nontender abdomen, I do not suspect obstruction or serious pathology, most likely cannabinoid hyperemesis syndrome versus drug-seeking behavior. I have reviewed records, and 2 weeks ago he was here with similar complaints and had a normal CT abdomen pelvis was unremarkable laboratory evaluation. His labs today are unremarkable, except for a white count of 11.1 with neutrophil predominance, but I do not suspect this to represent infection. Rhythm Strip Diag. Results Rhythm Strip Time: 10:41 EP Interpretation: yes Rate: 90 Rhythm: NSR Last Vital Signs Date Time Temp Pulse Resp B/P (MAP) Pulse Ox O2 Delivery O2 Flow Rate FiO2 04/09/19 09:56 100.4 105 18 98 Room Air Disposition: HOME, SELF-CARE Condition: Stable Referrals: NOT CHOSEN WAQAR/,REFERRING (PCP) SAMIR MELENDEZ M.D Apr 09, 2019 10:42
[2019-04-09 10:54] LABS: APPEARANCE,URINE CLEAR; BILIRUBIN, URINE NEGATIVE (NEGATIVE); COLOR,URINE PALE YELLOW; GLUCOSE, URINE (UA) NEGATIVE (NEGATIVE); KETONES,URINE NEGATIVE (NEGATIVE); LEUKOCYTE ESTERASE ,URINE NEGATIVE (NEGATIVE); NITRITE,URINE NEGATIVE (NEGATIVE); PH,URINE 8 (4.5-8.0); PROTEIN,URINE NEGATIVE (NEGATIVE); UROBILINOGEN,URINE NORMAL MG/DL (0.0-1.0)
--- NOTE | 2019-04-09 11:13 | NUR ---
ED Nurse Note: pt found on hallway, pt disconnect cardiac cable by himself. RN assist pt to go back to assigned bed and connect to cardiac cable. call light hand to pt and instructed pt, press call light for help. Dr. King notified that pt wants more pain meds. will wait for the further order.
[2019-04-09 11:15] LABS: BASOPHILS % (AUTO) 0.9 % (0.0-2.0); EOSINOPHILS % (AUTO) 1.1 % (0.0-3.0); HEMATOCRIT 44.2 % (42.0-52.0); HEMOGLOBIN 16.2 G/DL (14.2-18.0); MEAN CORPUSCULAR VOLUME 86 FL (80-99); MONOCYTES % (AUTO) 7.4 % (1.0-10.0); NEUTROPHILS % (AUTO) 80.6 % (45.0-75.0); PLATELET COUNT 315 K/UL (150-450); RED BLOOD COUNT 5.14 M/UL (4.70-6.10); RED CELL DISTRIBUTION WIDTH 10.3 % (11.6-14.8); WHITE BLOOD COUNT 11.1 K/UL (4.8-10.8)
[2019-04-09 11:17] LABS: ANION GAP 9 mmol/L (5-15); BLOOD UREA NITROGEN 11 mg/dL (7-18); CALCIUM 9.7 MG/DL (8.5-10.1); CARBON DIOXIDE 25 MMOL/L (21-32); CHLORIDE 103 MMOL/L (98-107); CREATININE 1.1 MG/DL (0.55-1.30); POTASSIUM 3.6 MMOL/L (3.5-5.1); SODIUM 137 MMOL/L (136-145)
[2019-04-09 11:25] LABS: ALANINE AMINOTRANSFERASE 19 U/L (12-78); ALBUMIN 4.5 G/DL (3.4-5.0); ALBUMIN/GLOBULIN RATIO 1.2 (1.0-2.7); ALKALINE PHOSPHATASE 78 U/L (46-116); ASPARTATE AMINO TRANSFERASE 19 U/L (15-37); BILIRUBIN,TOTAL 0.7 MG/DL (0.2-1.0)
[2019-04-09] MEDS ORDERED: DiphenhydrAMINE 50mg/ml Inj IVP ONE (12:00)
[2019-04-09] MEDS ORDERED: Morphine Sulfate 4mg/ml Inj (IV USE ONLY) IVP ONE (12:00)
--- NOTE | 2019-04-09 12:00 | NUR ---
ED Nurse Note: pt continuing to ask for px meds and when given medication, inquires about dose.
[2019-04-09] MEDS ORDERED: DICYCLOMINE HCL10 MG ORAL (12:16)
[2019-04-09] MEDS ORDERED: ONDANSETRON ODT4 MG BC (12:16)
[2019-04-09 12:30] VITALS: BP 112/67
== END 2019-04-09 12:30 | disposition home or self-care (01) ==
LOC: EMR 10:21
DX: R10.13 Epigastric pain (principal); F32.9 Major depressive disorder, single episode, unspecified; F41.9 Anxiety disorder, unspecified; Z88.6 Allergy status to analgesic agent; F12.10 Cannabis abuse, uncomplicated
CPT/HCPCS: 36415; 80053; 81003; 83690; 85025; 96361; 96372; 96374; 96375; 96376; J1200; J2270; J2405; Z7502; 99284